=== PATIENT | female | born 1925 | race Caucasian/White ===

== ENCOUNTER → 2016-08-25 | Outpatient (CLI) | payer OTHER ==
[~2016-08-25] MED LIST: ATEN-51 PO
--- NOTE | 2016-08-25 14:30 | RADRPT ---
PROCEDURE: XR left knee. CLINICAL INDICATION: Knee pain TECHNIQUE: The AP weightbearing, PA weightbearing, lateral weight bearing and sunrise views are av ailable for review. COMPARISON: 05/19/2014 FINDINGS: There is moderate to severe osteoarthrosis involving the lateral tibial femoral compartment, moderat e osteoarthrosis involving the medial tibial femoral compartment and mild osteoarthrosis involving t he patellofemoral compartment. This is associated with joint space narrowing, subchondral sclerosis and osteophytosis. There is otherwise normal mineralization, architecture and alignment. No fractures are identified. No osseous lesions are identified. The soft tissues are unremarkable. IMPRESSION: Moderate to severe osteoarthrosis involving the lateral tibial femoral compartment, moderate osteoar throsis involving the medial tibial femoral compartment and mild osteoarthrosis involving the patell ofemoral compartment RPTAT: HGDB .Reggie Rodriguez MD, Date Time Electronically viewed and signed by .Reggie Rodriguez MD, on 08/25/2016 14:30 .B/
--- NOTE | 2016-08-25 14:32 | RADRPT ---
PROCEDURE: XR right knee. CLINICAL INDICATION: Knee pain. TECHNIQUE: The AP weightbearing, lateral weightbearing and sunrise views are available for review. COMPARISON: No comparison available FINDINGS: There is a total knee replacement. There is no evidence of loosening of the prosthesis. There is dif fuse osteopenia No acute fracture or dislocation is seen.No osseous lesions are identified. The sof t tissues are unremarkable . IMPRESSION: Diffuse osteopenia Unremarkable total knee replacement. RPTAT: HGDB .Reggie Rodriguez MD, Date Time Electronically viewed and signed by .Reggie Rodriguez MD, on 08/25/2016 14:32 .B/
== END | disposition home or self-care (01) ==
LOC: HKI 13:27
PROVIDERS: ATTEND Orthopaedic Surgery
DX: Z47.1 Aftercare following joint replacement surgery (principal); M17.12 Unilateral primary osteoarthritis, left knee; M25.562 Pain in left knee; Z96.651 Presence of right artificial knee joint
CPT/HCPCS: 73562; 73564; G0463

== ENCOUNTER → 2016-11-21 | Outpatient (CLI) | payer OTHER ==
--- NOTE | 2016-11-24 15:08 | RADRPT ---
PROCEDURE: Limited x-ray of both lower extremities. 06/21/2014. 1012 hours. CLINICAL INDICATION: Bilateral leg pain. TECHNIQUE: Single frontal view of both lower extremities was obtained from the hips to the calves. COMPARISON: Plain radiographs of the knees from 06/21/2014 FINDINGS: There has been interval placement of a total right knee prosthesis in near anatomic alignment withou t evidence of hardware loosening. There is valgus deformity of the left knee which is not significantly changed. Chondrocalcinosis of the left knee joint is again noted in the medial and lateral compartments. The re are increased degenerative changes of the left knee joint including joint space narrowing and ost eophytes involving primarily the lateral compartment. There is decreased osseous mineralization. IMPRESSION: Interval placement of a total right knee prosthesis in near anatomic alignment without evidence of h ardware loosening. Moderate to severe degenerative changes of the left knee joint which have increased since the prior radiographs from 1014. Decreased osseous mineralization. RPTAT: EE Physician Gisel Date Time Electronically viewed and signed by Larry Carrera Physician on 11/24/2016 15:08 /
== END | disposition home or self-care (01) ==
LOC: HKI 09:31
PROVIDERS: ATTEND Orthopaedic Surgery
DX: Z01.818 Encounter for other preprocedural examination (principal); M17.12 Unilateral primary osteoarthritis, left knee; M25.562 Pain in left knee; Z96.651 Presence of right artificial knee joint
CPT/HCPCS: 77073; G0463

== ENCOUNTER 2016-12-02 07:34 | Inpatient (IN) | payer OTHER ==
[2016-12-01 10:40] VITALS: BMI 36.0
[~2016-12-02] VITALS: Ht 162.6 cm; Wt 96.4 kg
[2016-12-02] VITALS (20 sets, daily range): BP systolic 103–143; BP diastolic 56–78; PULSE 65–92; RESP 12–18; Ht 162.6 cm; Wt 96.4 kg
[~2016-12-02 07:34] MED LIST changes: +EPHEDrine SULFATE 50 MG/5 ML SYG ONE
[2016-12-02] MEDS ORDERED: PREGABALIN 300 MG PO X1 PO ONE (08:00)
[2016-12-02] MEDS ORDERED: TRANEXAMIC ACID in SOD CHLORIDE 0.9% 100 ML ON CALL TO OR IV ONE (08:00)
[2016-12-02] MEDS ORDERED: oxyCODONE (CR) 10 MG TAB [oxyCONTIN] X1 DOSE PO ONE (08:00)
[2016-12-02] MEDS ORDERED: CELECOXIB 400 MG PO X1 DOSE PO ONE (08:00)
[2016-12-02] MEDS ORDERED: PAIN COCKTAIL-CEFUROXIME IRR ONE ×7 (08:00)
[2016-12-02] MEDS ORDERED: CEFAZOLIN 2GM/50 ML (PMX) 50 ML X1 BEFORE INCISION IVPB ONE (08:00)
[2016-12-02] MEDS ORDERED: traMADOL 50 MG TAB X 1 DOSE PO ONE (08:00)
[2016-12-02] MEDS ORDERED: BUPIVACAINE LIPOSOME/PF 266 MG/20 ML VIAL INFIL ONE (08:00)
[2016-12-02] MEDS ORDERED: LACTATED RINGER'S 1,000 ML IV SCH (08:00)
--- NOTE | 2016-12-02 08:21 | CONS ---
DATE OF ADMISSION: 12/02/2016 DATE OF CONSULTATION: PREOPERATIVE INTERNAL MEDICINE CONSULTATION REASON FOR ADMISSION: She is being admitted tomorrow, 12/02/2016, by Dr. Hull for planned left tota l knee replacement. HISTORY OF PRESENT ILLNESS: This is an 89-year-old old female in good health who successfully under went a right total hip replacement in 2013 and who now returns for planned left total knee replaceme . For the details of orthopedic history, please see the full evaluation per Dr. Hull. Medically, she has well controlled hypertension and denies any history of chest pain, shortness of b reath, syncope, presyncope, or any palpitations. She did undergo a normal nuclear medicine SPECT cardiac study in 04/2016 and her most recent echo in 07/2016 showed normal ejection fraction with moderate MR and AI. She is totally asymptomatic from any cardiopulmonary standpoint. No recent fevers, chills or sweats . PAST MEDICAL HISTORY: Please see dictated problem list. ALLERGIES: NONE. HABITS: Tobacco: None. Alcohol: None. MEDICATIONS: 1. Bystolic 2.5 mg daily. 2. Hydrochlorothiazide 12.5 mg daily. 3. Atenolol 25 mg daily. REVIEW OF SYSTEMS: As per HPI. PHYSICAL EXAMINATION: GENERAL: Awake and alert, fit-appearing elderly woman in no acute distress. VITAL SIGNS: Afebrile. Blood pressure is 112/66, heart rate is 66 and regular, respirations are 12 and unlabored. SKIN: No rash. HEAD: Normocephalic, atraumatic. EYES: Pupils are equal, round, reactive. Extraocular movements are full. Sclerae are anicteric. PHARYNX: No lesions. NECK: JVP is not distended. No adenopathy or thyromegaly. Carotids are 2+, no bruits. BACK: No CV/AT. LUNGS: Clear. HEART: S1, S2 with a very soft II/ systolic murmur. ABDOMEN: Soft and nontender. No organomegaly. EXTREMITIES: No cyanosis, clubbing; no edema. LABORATORY DATA: See enclosed. PROBLEM LIST: 1. Degenerative joint disease for planned left total knee replacement. 2. Status post right total knee replacement in 2013. 3. Hypertension, well controlled. 4. Status post normal nuclear medicine cardiac study in 04/2016. 5. 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 6. Snowden cyst on an ultrasound of the left knee dated 11/2016. 7. Status post bladder suspension in 2011. 8. Status post cholecystectomy. RECOMMENDATIONS: The patient is medically cleared for planned surgery. I will be happy to follow h er in the postop period. Dictated By: BRADLEY DUNNE MD, MM/ZURDO Conf#: [id number] DID#: [id number]
[2016-12-02] MEDS ORDERED: NEBI2.5T2 PO (08:22)
[2016-12-02] MEDS ORDERED: HYDR12.58 PO (08:22)
[2016-12-02] MEDS ORDERED: BACITRACIN 50000 UNITS INJ ONE (09:14)
[2016-12-02] MEDS ORDERED: VANCOMYCIN 1 GM INJ ONE (09:15)
[2016-12-02] MEDS ORDERED: POLYMYXIN B 500000 UNIT INJ ONE (09:15)
--- NOTE | 2016-12-02 10:20 | HPN ---
Date/Time of Note Date/Time of Note DATE: 12/02/16 TIME: 10:19 Interval H&P Admission Note Pt. seen H&P reviewed: No system changes No changes from H&P on 11/27/16 by SATURNINO Brandon MD December 02, 2016 10:19
[2016-12-02] MEDS ORDERED: EXPAREL NOTE (BUPIVICAINE LIPOSOMAL) XX SCH (10:30)
[2016-12-02] MEDS ORDERED: DEXAMETHASONE 4 MG/ML 1 ML INJ ONE (10:31)
[2016-12-02] MEDS ORDERED: FENTAnyl 50 MCG/ML VIAL ONE (10:31)
[2016-12-02] MEDS ORDERED: METOCLOPRAMIDE 10 MG INJ ONE (10:31)
[2016-12-02] MEDS ORDERED: HYDROmorphONE 2 MG/ML SYG ONE (11:28)
[2016-12-02] MEDS ORDERED: PROPOFOL 100 ML ONE (11:28)
[2016-12-02] MEDS ORDERED: METOCLOPRAMIDE 10 MG INJ IV PRN (12:00)
[2016-12-02] MEDS ORDERED: ONDANSETRON 4 MG INJ IV PRN ×2 (12:00→14:00)
[2016-12-02] MEDS ORDERED: LABETALOL HCL 20MG INJ IV PRN (12:00)
[2016-12-02] MEDS ORDERED: hydrALAzine 20 MG INJ IV PRN (12:00)
[2016-12-02] MEDS ORDERED: DIPHENHYDRAMINE 50 MG INJ IV PRN (12:00)
[2016-12-02] MEDS ORDERED: MEPERIDINE 25 MG INJ IV PRN (12:00)
[2016-12-02] MEDS ORDERED: HYDROmorphONE (0.2 MG/ML) 10ML SYG IV PRN ×3 (12:00)
[2016-12-02] MEDS: TRANEXAMIC ACID 950 MG in SOD CHLORIDE 0.9% 100 ML IVPB ONE ×3 (12:42)
[2016-12-02] MEDS ORDERED: PROPOFOL 20 ML ONE (13:02)
--- NOTE | 2016-12-02 13:50 | OPR ---
Date/Time of Note Date/Time of Note DATE: 12/02/16 TIME: 13:49 Operative Report Free Text/Dictation Dictation # [id number] Procedure Date: December 02, 2016 Preoperative Diagnosis Left Knee OA Postoperative Diagnosis Same Operation Performed Left TKA Surgeon: SATURNINO SALDANA MD human resource assistant: KEM CHACON PA-C Anesthesia: general Anesthesiologist: IGOR SANCHEZ MD Tourniquet Time: 78 minutes Estimated Blood Loss: 50 - 100 ml's Specimens Bone and soft tissue Tubes/Drains Hemovac x 1 Complications: None Pt Condition Post Procedure: stable Disposition: PACU SATURNINO SALDANA MD December 02, 2016 13:50
[2016-12-02] MEDS ORDERED: ASPIRIN (EC) 325 MG TAB PO ONE (14:00)
[2016-12-02] MEDS ORDERED: NACL 0.9% 3 ML SYG IV SCH (14:00)
[2016-12-02] MEDS ORDERED: DIPHENHYDRAMINE 25 MG CAP PO PRN (14:00)
[2016-12-02] MEDS ORDERED: HYDROmorphONE 1 MG/ML SYG IV PRN (14:00)
[2016-12-02] MEDS ORDERED: NA PHOSPHATE/BIPHOS 133 ML ENEMA PR PRN (14:00)
[2016-12-02] MEDS ORDERED: BISACODYL 10 MG SUPP PR PRN (14:00)
[2016-12-02] MEDS ORDERED: HYDROCODONE/APAP (5/325) TAB PO PRN (14:00)
[2016-12-02 14:17] LABS: HEMATOCRIT 33.3 % (37.0-47.0); HEMOGLOBIN 10.7 g/dl (12.0-16.0)
--- NOTE | 2016-12-02 14:25 | RADRPT ---
PROCEDURE: XR left knee. CLINICAL INDICATION: Knee pain. TECHNIQUE: AP and lateral views are available for review. COMPARISON: No comparison available FINDINGS: There is a postoperative total knee replacement. There is no evidence of loosening of the prosthesis . There is no evidence of hardware failure. The osseous structures are normal in mineralization, arc hitecture and alignment No acute fracture or dislocation is seen.No osseous lesions are identified. There are postoperative soft tissue changes. A drain is in place. Anterior skin sutures are in pl daniel. . IMPRESSION: Unremarkable postoperative total knee replacement. Postoperative soft tissue changes RPTAT: HGDB .Reggie Rodriguez MD, Date Time Electronically viewed and signed by .Reggie Rodriguez MD, on 12/02/2016 14:24 .B/
[2016-12-02] MEDS: CEFAZOLIN 2 GM/50 ML (PMX) 50 ML IVPB SCH ×2 (14:30→22:23)
[2016-12-02 14:53] LABS: CREATININE 0.83 mg/dl (0.44-1.00)
--- NOTE | 2016-12-02 15:08 | OPR ---
DATE OF OPERATION: 12/02/2016 PREOPERATIVE DIAGNOSIS: Left knee osteoarthritis. POSTOPERATIVE DIAGNOSIS: Left knee osteoarthritis. OPERATION PERFORMED: Left total knee arthroplasty. SURGEON: Saturnino Hull MD OFFICE AIDE: MARY Brown COMPONENTS USED: DePuy Attune size 6 narrow femoral component, size 5 tibial baseplate, 7 mm polyet hylene insert, 32 patellar button. ANESTHESIA: Spinal plus general endotracheal intubation, plus femoral nerve catheter. ANESTHESIOLOGIST: Dr. Haynes TOURNIQUET TIME: 78 minutes. ESTIMATED BLOOD LOSS: 50 cc INTRAVENOUS FLUIDS: 2 liters of crystalloid. SPECIMENS: Bone and soft tissue. DRAINS: Hemovac x1. COMPLICATIONS: None. DISPOSITION: The patient tolerated the procedure well and was taken to the recovery room in stable condition. INDICATIONS: The patient is an 89-year-old woman who has had progressive worsening pain in the left knee with radiographic evidence of severe osteoarthritis. She has failed non-surgical means of rachana atment to control her pain, including activity modifications, pain medications, intra-articular inje ctions and ambulatory assist devices. Despite these measures, she has had worsening pain, and I fel t she would benefit from a total knee arthroplasty. The risks, benefits, and alternatives of the procedure were explained in detail to the patient. I e xplained the risks of the surgery to include but not be limited to, bleeding and possible need for b lood transfusion; infection; pain; stiffness; neurovascular injury with possible numbness, weakness, and/or paralysis anywhere from the knee down to the toes; fracture; instability; dislocation; wear and/or loosening of the prosthesis and possible need for future revision; blood clots; pulmonary emb olism; and anesthetic complications such as heart attack, stroke, GI bleed, pneumonia, and/or . Ample time was allowed for the patient to ask questions, all of which were addressed and answered. The patient understood the risks involved and wished to proceed. Informed consent was signed prior to the procedure. PROCEDURE: The patient's left knee was initialed with a marking pen in the preoperative area to jaki ntify the correct operative site. The patient was brought to the operating room and [facility] operating table where a spinal anesthetic was administered. The patien t was then anesthetized and intubated. A Perez catheter was placed. A timeout was performed to con firm that the left leg was the correct operative site. The patient was given 2 g of Ancef within one hour prior to the procedure. A tourniquet was placed on the operative proximal thigh. The operati ve knee and lower extremity were prepped and draped in the usual sterile fashion. The operative low er extremity was elevated and exsanguinated with an Esmarch tourniquet. The proximal thigh tourniqu et was inflated to 300 mmHg. The knee was flexed. A midline incision was made and carried down through the subcutaneous tissue a nd fat with sharp dissection. Limited medial and lateral flaps were raised. A median parapatellar arthrotomy approach was performed. Synovial fluid was normal in color and consistency. The patella was everted and the knee flexed. There were severe tricompartmental osteoarthritic changes noted. A lateral release was performed using the inverted Crucifix technique. The ACL and PCL and remnant s of the menisci were excised. The OrthAlign navigation device was then pinned into place on the di stal femur and set to 0 degrees of varus/valgus and 3 degrees of flexion. The distal cutting block was pinned into place and the oscillating saw was used to make the cut. The tibia was subluxed anteriorly. The tibial OrthAlign navigation device was then pinned into plac e such that the proximal portion of the guide was centered over the junction of the medial and middl e third of the tibial tubercle with the proximal probe placed at the posterior aspect of the ACL tolu tprint. The guide was then set to 0 degrees varus/valgus and 3 degrees of posterior slope. The cut ting block was then pinned into place and the oscillating saw was used to make the cut. The tibia w as sized. The extension gap was checked and accommodated a 7 mm spacer block with the knee in full extension. There was no varus or valgus instability. At this point, the femur was sized with the posterior referencing guide. Two holes were drilled in 3 degrees of external rotation. The two holes were in line with the transepicondylar axis, perpendi cular to [place]'s line, and in line with the tibial cutoff jig brought up with the knee flexed 90 degrees and tensed with 2 lamina spreaders, suggesting the femoral rotation was correct. The four- in-one cutting block was pinned into place. The anterior and posterior cuts and chamfer cuts were m susanne with the oscillating saw. The flexion gap was checked and accommodated the 7 mm spacer block at 90 degrees. There was no varus or valgus instability, suggesting the flexion and extension gaps wer e now equal. The central box was cut out on the femur. The tibia was drilled and punched in proper rotation. Tri al components were placed into position with a trial insert. The patella was cut from 23 mm down to 15 mm and sized. Three holes were drilled and the trial button placed in position. With all the t rials now in place, the knee was taken through range of motion and came to full extension as evidenc ed by the fact that with the foot on my abdomen and axial loading, there was no tendency for the kne e to flex. The knee was able to be flexed to 125 degrees with good patellar tracking with no latera l tilt or subluxation. At this point, I was satisfied with the overall range of motion, stability, and patellar tracking. The trials were removed. The real components were opened. Two bags of cement were mixed, one with and one without premixed antibiotic. The knee was irrigated with antibiotic saline and sucked dry. Once the cement was in a doughy stage, the real components were cemented into place. The knee was held in full extension, and the patellar component was held with a patellar clamp. All excess cemen t was removed with curettes. As the cement was hardening, the synovial/capsular layer was infiltrat ed with a mixture of 150 mg of 0.5% Bupivacaine, 8 mg of Duramorph, 300 mcg of epinephrine, 30 mg of Toradol, 100 mcg of clonidine, 750 mg of cefuroxime and 86 mL of normal saline. followed by an inj ection of 266 mg of liposomal Bupivacaine. A Hemovac drain was placed in the deep portion of the wound and brought out the anterolateral thigh. Once the cement was completely hardened, the trial liner was removed, and the real insert was open ed. The tourniquet was let down, and there was good hemostasis. The knee was then irrigated with a mixture of betadine/saline and then antibiotic saline with pulsatile lavage. The real insert was i mpacted into the tibia and reduced onto to the femur. The arthrotomy was closed with a few interrupted #1 Ethibond in a [id number]-bh-blsow fashion, and then closed in a watertight fashion with a running #2 Stratafix suture. Knee flexion was checked against gravity and came to 125 degrees. The subcutaneous layer was irrigated and closed with 2-0 Stratafi x, and then 3-0 Vicryl and then steven on the skin. The wound was covered with an occlusive dressi ng, and secured with cast padding and a bias dressing. The drain was secured with 3-0 nylon. The sponge and needle counts were correct at the end of the case. The patient was then awakened, ex tubated, and taken to the recovery room in stable condition. Dictated By: SAUTRNINO ALVARES/ZURDO Conf#: [id number] DID#: [id number]
--- NOTE | 2016-12-02 15:24 | CONS ---
DATE OF ADMISSION: 12/02/2016 DATE OF CONSULTATION: 12/02/2016 TYPE OF CONSULTATION: Postoperative Medical Thank you very much, Dr. Saldana, for allowing me to evaluate the above patient who just underwent le ft total knee replacement. HISTORICAL EVENTS: As you well know, this patient has had increasing pain involving her left knee a nd elected to proceed with surgery today. In recovery, postoperatively she is comfortable without s hortness of breath, cough, wheezing, chest or abdominal pain. MEDICATIONS PRIOR TO ADMISSION: Include: 1. Bystolic 2.5 per day. 2. Hydrochlorothiazide 12.5 per day. PAST MEDICAL HISTORY: 1. Cholecystectomy. 2. History of benign breast cyst removal 30 years ago. 3. Bladder suspension. 4. Right total knee replacement. 5. Normal nuclear treadmill 04/2016 with echocardiography in 07/2015 revealed moderate MR and AI. 6. On 11/25/2016, she had a Snowden's cyst involving the left lower extremity without evidence of de ep vein thrombosis. 7. She admits undergoing nuclear stress study in 07/2015 that revealed no ischemia. PHYSICAL EXAMINATION: GENERAL: Comfortable appearing female in no acute distress. VITAL SIGNS: Blood pressure 122/80, pulse 70, respirations are 20, she was afebrile. EYES: Extraocular muscles were full. NOSE, MOUTH, AND THROAT: Normal. NECK: Supple. There was no jugular venous distention, thyroid enlargement or adenopathy. LUNGS: Clear. HEART: Rhythm regular. ABDOMEN: Nontender. Liver and spleen were not palpable. No masses or tenderness were noted. EXTREMITIES: No edema, no calf tenderness. NEUROLOGIC: No lateralizing motor weakness. IMPRESSION: 1. Stable postoperative left knee replacement. 2. History of hypertension, to continue Bystolic but will hold hydrochlorothiazide given extracellu lar fluid losses. 3. We will follow her daily for signs and symptoms of thromboembolic disease despite appropriate de ep venous thrombosis prophylaxis. Dictated By: DYLAN HIGGINS/NTS Conf#: [id number] DID#: [id number] CC: SATURNINO SALDANA MD;*EndCC*
--- NOTE | 2016-12-02 16:55 | PN ---
Date/Time of Note Date/Time of Note DATE: 12/02/16 TIME: 16:53 Assessment/Plan Lines/Catheters IV Catheter Type (from Nrsg): Peripheral IV Plummer in Place (from Nrsg): Yes Assessment/Plan Assessment/Plan Stable in PACU, s/p left TKA -continue ancef until drain removed -pain meds as needed ASA/SCDs for DVT prophylaxis -OOB with PT -check AM labs -monitor drain -d/c plummer in AM XR of the left knee shows good alignment with no evidence of fracture or dislocation Subjective 24 Hr Interval Summary Stable in PACU. Moving all extremities. Denies any pain. Exam/Review of Systems Vital Signs Vitals Vital Signs Date Time Temp Pulse Resp B/P Pulse Ox O2 Delivery O2 Flow Rate FiO2 12/02/16 15:38 78 14 111/66 95 Nasal Cannula 2.0 12/02/16 14:38 97.9 Exam Free Text/Dictation Hemovac: minimal Dressing dry Incision clean, dry, and intact without redness or drainage Thigh soft 12/05 Quadriceps, Tibialis Anterior, EHL, Gastroc, Soleus, Peroneals Normal sensation Palpable DT/PT, CR <2 sec No distal edema Results Result Diagram: 12/02/16 1405 12/02/16 1405 KEM CHACON PA-C December 02, 2016 16:55
[2016-12-02] MEDS ORDERED: TRANEXAMIC ACID 960 MG in SOD CHLORIDE 0.9% 100 ML IVPB ONE ×2 (17:00→20:00)
--- NOTE | 2016-12-02 17:06 | RADRPT ---
PROCEDURE: Intraoperative imaging of the left knee with fluoroscopy. CLINICAL INDICATION: Left knee pain. Intraoperative. TECHNIQUE: 2 images of the left knee were obtained in the operating room with an image intensifier . No radiologist was in attendance. 0.3 minutes of fluoroscopy time was used. COMPARISON: 11/21/2016. FINDINGS: Images demonstrate components of a left knee total arthroplasty. IMPRESSION: 1. Intraoperative imaging of the left knee. RPTAT: QQ .Frantz Pete MD, MD Date Time Electronically viewed and signed by .Frantz Pete MD, on 12/02/2016 17:05 .R/
[2016-12-02] MEDS: PANTOPRAZOLE (EC) 40 MG TAB PO SCH (17:19)
[2016-12-02] MEDS: traMADol 50 MG TAB PO SCH (17:19)
[2016-12-02] MEDS: ACETAMINOPHEN 1000MG/100ML IV 100 ML IVPB SCH (17:20)
[2016-12-02] MEDS ORDERED: CEFAZOLIN 2 GM/50 ML (PMX) 50 ML IVPB SCH (20:00)
[2016-12-02] MEDS: DOCUSATE SODIUM 100 MG CAP PO SCH (22:23)
[2016-12-02] MEDS: LACTATED RINGER'S 1,000 ML IV SCH (22:23)
[2016-12-02] MEDS: PREGABALIN 50 MG CAP PO SCH (22:23)
[2016-12-03] MEDS: ACETAMINOPHEN 1000MG/100ML IV 100 ML IVPB SCH ×3 (00:16→13:16)
[2016-12-03] MEDS: traMADol 50 MG TAB PO SCH ×4 (00:16→17:52)
[2016-12-03 00:17] VITALS: BP 122/64; PULSE 66; RESP 18
[2016-12-03 05:28] LABS: HEMATOCRIT 34.9 % (37.0-47.0); HEMOGLOBIN 10.7 g/dl (12.0-16.0)
[2016-12-03 05:32] LABS: MAGNESIUM 1.8 mg/dl (1.7-2.5)
[2016-12-03] MEDS: LACTATED RINGER'S 1,000 ML IV SCH ×4 (05:32→22:40)
[2016-12-03] MEDS: PANTOPRAZOLE (EC) 40 MG TAB PO SCH ×2 (05:33→17:52)
[2016-12-03 05:35] LABS: CREATININE 0.83 mg/dl (0.44-1.00); POTASSIUM 4.9 mmol/L (3.5-5.1)
[2016-12-03] MEDS: CEFAZOLIN 2 GM/50 ML (PMX) 50 ML IVPB SCH (06:01)
[2016-12-03 08:02] VITALS: BP 122/58; RESP 20
--- NOTE | 2016-12-03 08:12 | PDOCDIS ---
Discharge Instructions DIAGNOSIS Discharge Diagnosis: s/p left TKA CONDITION Patient Condition: Good HOME CARE INSTRUCTIONS: Diet Instructions: Regular ACTIVITY: Activity Restrictions: Slowly Increase Activity Rest between Activity Avoid heavy lifting Do not operate Machinery Do not operate Power Tool Avoid Heavy Housework Keep Limb Elevated FOLLOW UP/APPOINTMENTS Appointments follow up in the office on 12/12/16 OTHER ORDERS: Other Orders: S/P TKA Physical Therapy: Three times per week at home x 2 weeks Daily in Rehab/SNF WB STATUS: WBAT 1. Strengthening exercises for both upper and un-operated lower extremities. 2. Gait training with front wheeled walker 3. Active range of motion exercises to operative knee. 4. When not working on knee range of motion exercises, distal towel roll under operative ankle/distal calf to promote full extension. 5. DO NOT PUT ANYTHING BEHIND OPERATIVE KNEE!!! 6. Quadriceps and hamstring strengthening. 7. May switch to cane in contra lateral hand 6 weeks after surgery. 8. Physical Therapy can open case if nursing is not available. 9. Use Ice Machine as instructed from date of surgery while at rest 3X/day. 10. Patient requires mobile SCDs to reduce risk of developing DVT following TKA. Patient will use the mobile SCDs for 30 days postoperatively. Bathing assistance by home health aide twice weekly if Medicare patient. Occupational Therapy: Evaluation for assistive devices and ADL training. Wound Care: Keep incision dry & covered with Tegaderm until first visit with Dr. Hull Anticoagulation Orders: Enteric Coated Aspirin 325 mg po bid x 6 weeks from date of surgery Follow-up:Call for an appointment with Dr. Hull in 1 week after discharged from hospital at DME Orders: JADIEL, 3-in-1 Commode, Polar ice machine, Mobile SCDs KEM CHACON PA-C December 03, 2016 08:12
[2016-12-03] MEDS ORDERED: TRAM50TA2 PO (08:14)
[2016-12-03] MEDS ORDERED: ASPI325T32 PO (08:14)
[2016-12-03] MEDS ORDERED: PANT40TA4 PO (08:14)
[2016-12-03] MEDS ORDERED: HYDR-905 PO (08:14)
[2016-12-03] MEDS ORDERED: PREG50CA PO (08:15)
--- NOTE | 2016-12-03 08:45 | PN ---
Date/Time of Note Date/Time of Note DATE: 12/03/16 TIME: 08:44 Assessment/Plan Lines/Catheters IV Catheter Type (from Nrsg): Peripheral IV Perez in Place (from Nrsg): Yes Assessment/Plan Assessment/Plan Stable POD #1, s/p left TKA -d/c abx -pain meds as needed -ASA/SCDs -drain removed -OOB with PT -check AM labs -d/c planning. Will plan to go to [facility] upon discharge Subjective 24 Hr Interval Summary No acute overnight events. Denies pain. Complaining of mild sore throat from ET tube. Did not start PT yesterday. VSS, afebrile. Will likely go to SNF upon discharge. Exam/Review of Systems Vital Signs Vitals Vital Signs Date Time Temp Pulse Resp B/P Pulse Ox O2 Delivery O2 Flow Rate FiO2 12/03/16 08:02 98.3 80 20 122/58 98 12/03/16 00:17 Nasal Cannula 2.0 Intake and Output 12/02/16 12/02/16 12/03/16 15:00 23:00 07:00 Intake Total 2109.5 ml 240 ml 1800 ml Output Total 300 ml 930 ml Balance 1809.5 ml 240 ml 870 ml Exam Free Text/Dictation Hemovac: 30cc Dressing dry Incision clean, dry, and intact without redness or drainage Thigh soft /5 Quadriceps, Tibialis Anterior, EHL, Gastroc, Soleus, Peroneals Normal sensation Palpable DT/PT, CR <2 sec No distal edema Results Result Diagram: 12/03/16 0433 12/03/16 0433 KEM CHACON PA-C December 03, 2016 08:45
--- NOTE | 2016-12-03 08:51 | CONS ---
Date/Time of Note Date/Time of Note DATE: 12/03/16 TIME: 08:49 Assessment/Plan Assessment/Plan Additional Assessment/Plan 1. Left knee replacement, stabe 2. HBP, controlled 3. Labs rev Consultation Date/Type/Reason Admit Date/Time December 02, 2016 at 07:34 Initial Consult Date Detailed Summary Respiratory: No cough, No shortness of breath Cardiovascular: No chest pain Gastrointestinal: no complaints Genitourinary: other (plummer in place) Musculoskeletal: bone/joint pain (mild left knee pain) Exam/Review of Systems Vital Signs Vitals Vital Signs Date Time Temp Pulse Resp B/P Pulse Ox O2 Delivery O2 Flow Rate FiO2 12/03/16 08:02 98.3 80 20 122/58 98 12/03/16 00:17 Nasal Cannula 2.0 Intake and Output 12/02/16 12/02/16 12/03/16 15:00 23:00 07:00 Intake Total 2109.5 ml 240 ml 1800 ml Output Total 300 ml 930 ml Balance 1809.5 ml 240 ml 870 ml Exam Neck: No jvd Respiratory: clear to auscultation Cardiovascular: regular rate and rhythm Gastrointestinal: soft Extremities: No edema (bilat) Results Result Diagram: 12/03/16 0433 12/03/16 0433 Results 24 hrs Laboratory Tests Test 12/02/16 14:05 12/03/16 04:33 Hemoglobin 10.7 L 10.7 L Hematocrit 33.3 L 34.9 L Sodium Level 139 135 Potassium Level 4.0 4.9 Chloride Level 103 103 Carbon Dioxide Level 26 24 Anion Gap 14 13 Blood Urea Nitrogen 31 H 31 H Creatinine 0.83 0.83 Glucose Level 157 143 Calcium Level 9.0 9.0 Phosphorus Level 5.0 H Magnesium Level 1.8 Medications Medications Current Medications Miscellaneous Medication 2.5 mg 2.5 mg DAILY PO ; Start 12/03/16 at 09:00 Lactated Ringer's (Lr) 1,000 ml @ 125 mls/hr Q8H IV Last administered on t 05:32; Admin Dose 125 MLS/HR; Start 12/02/16 at 13:33 Celecoxib 200 mg 200 mg DAILY PO ; Start 12/03/16 at 09:00 Acetaminophen (Ofirmev 1000mg/ 100ml Iv) 100 ml @ 400 mls/hr Q6 IVPB Last administered on 12/03/16 05:32; Admin Dose 400 MLS/HR; Start 12/02/16 at 18:00; Stop 12/03/16 at 17:59 Tramadol HCl (Ultram) 50 mg Q6 PO Last administered on 12/03/16 05:33; Admin Dose 50 MG; Start 12/02/16 at 18:00; Stop 12/05/16 at 17:59 Acetaminophen/ Hydrocodone Bitart ([place] (5/325)) 1 tab Q4H PRN PO PAIN LEVEL 1 -3; Start 12/02/16 at 14:00 Acetaminophen/ Hydrocodone Bitart ([place] (5/325)) 2 tab Q4H PRN PO PAIN LEVEL 4 -7; Start 12/02/16 at 14:00 Hydromorphone HCl (Dilaudid) 1 mg Q3H PRN IV PAIN LEVEL 8-10; Start 12/02/16 at 14:00 Ondansetron HCl (Zofran Inj) 4 mg Q6H PRN IV NAUSEA AND/OR VOMITING; Start 12/02 at 14:00 Bisacodyl (Dulcolax Supp) 10 mg Q12H PRN [place] CONSTIPATION; Start 12/02/16 at 14: 00 Magnesium Hydroxide (Milk Of Mag) 30 ml BID PRN PO CONSTIPATION; Start 12/02/16 at 14:00 Sodium Biphosphate/ Sodium Phosphate (Fleet Enema) 133 ml DAILY PRN [place] CONSTIPATION; Start 12/02/16 at 14:00 Docusate Sodium (Colace) 100 mg BID PO Last administered on 12/02/16 22:23; Admin Dose 100 MG; Start 12/02/16 at 21:00 Diphenhydramine HCl (Benadryl) 25 mg Q6H PRN PO PRURITUS; Start 12/02/16 at 14: 00 Aspirin (Ecotrin) 325 mg BID PO ; Start 12/03/16 at 09:00 Pantoprazole (Protonix Tab) 40 mg BID@06,18 PO Last administered on 12/03/16 05 :33; Admin Dose 40 MG; Start 12/02/16 at 18:00 Pregabalin (Lyrica) 50 mg BID PO Last administered on 12/02/16 22:23; Admin Dose 50 MG; Start 12/02/16 at 21:00 DYLAN OLIVAREZ MD December 03, 2016 08:51
[2016-12-03] MEDS ORDERED: HYDROCHLOROTHIAZIDE 12.5 MG CAP PO SCH (09:00)
--- NOTE | 2016-12-03 09:24 | PN ---
Date/Time of Note Date/Time of Note DATE: 12/03/16 TIME: 09:19 Assessment/Plan VTE Prophylaxis VTE Prophylaxis Intervention: ambulation Lines/Catheters IV Catheter Type (from Nrsg): Peripheral IV Urinary Cath still in place: Yes Subjective 24 Hr Interval Summary Free Text/Dictation Anesthesia NOte: A 89 year olfd female s/p knee replacement undet GA and spinal is dong well. pain is controlled, no N/V, headache, itching. back is clean. Exam/Review of Systems Vital Signs Vitals Vital Signs Date Time Temp Pulse Resp B/P Pulse Ox O2 Delivery O2 Flow Rate FiO2 12/03/16 08:02 98.3 80 20 122/58 98 12/03/16 00:17 Nasal Cannula 2.0 Intake and Output 12/02/16 12/02/16 12/03/16 14:59 22:59 06:59 Intake Total 2109.5 ml 240 ml 1800 ml Output Total 300 ml 930 ml Balance 1809.5 ml 240 ml 870 ml Results Result Diagram: 12/03/16 0433 12/03/16 0433 Results 24 hrs Laboratory Tests Test 12/02/16 14:05 12/03/16 04:33 Hemoglobin 10.7 L 10.7 L Hematocrit 33.3 L 34.9 L Sodium Level 139 135 Potassium Level 4.0 4.9 Chloride Level 103 103 Carbon Dioxide Level 26 24 Anion Gap 14 13 Blood Urea Nitrogen 31 H 31 H Creatinine 0.83 0.83 Glucose Level 157 143 Calcium Level 9.0 9.0 Phosphorus Level 5.0 H Magnesium Level 1.8 Medications Medications Current Medications Miscellaneous Medication 2.5 mg 2.5 mg DAILY PO ; Start 12/03/16 at 09:00 Lactated Ringer's (Lr) 1,000 ml @ 125 mls/hr Q8H IV Last administered on 05:32; Admin Dose 125 MLS/HR; Start 12/02/16 at 13:33 Celecoxib 200 mg 200 mg DAILY PO ; Start 12/03/16 at 09:00 Acetaminophen (Ofirmev 1000mg/ 100ml Iv) 100 ml @ 400 mls/hr Q6 IVPB Last administered on 12/03/16 05:32; Admin Dose 400 MLS/HR; Start 12/02/16 at 18:00; Stop 12/03/16 at 17:59 Tramadol HCl (Ultram) 50 mg Q6 PO Last administered on 12/03/16 05:33; Admin Dose 50 MG; Start 12/02/16 at 18:00; Stop 12/05/16 at 17:59 Acetaminophen/ Hydrocodone Bitart ([place] (5/325)) 1 tab Q4H PRN PO PAIN LEVEL 1 -3; Start 12/02/16 at 14:00 Acetaminophen/ Hydrocodone Bitart ([place] (5/325)) 2 tab Q4H PRN PO PAIN LEVEL 4 -7; Start 12/02/16 at 14:00 Hydromorphone HCl (Dilaudid) 1 mg Q3H PRN IV PAIN LEVEL 8-10; Start 12/02/16 at 14:00 Ondansetron HCl (Zofran Inj) 4 mg Q6H PRN IV NAUSEA AND/OR VOMITING; Start 12/02 at 14:00 Bisacodyl (Dulcolax Supp) 10 mg Q12H PRN [place] CONSTIPATION; Start 12/02/16 at 14: 00 Magnesium Hydroxide (Milk Of Mag) 30 ml BID PRN PO CONSTIPATION; Start 12/02/16 at 14:00 Sodium Biphosphate/ Sodium Phosphate (Fleet Enema) 133 ml DAILY PRN [place] CONSTIPATION; Start 12/02/16 at 14:00 Docusate Sodium (Colace) 100 mg BID PO Last administered on 12/02/16 22:23; Admin Dose 100 MG; Start 12/02/16 at 21:00 Diphenhydramine HCl (Benadryl) 25 mg Q6H PRN PO PRURITUS; Start 12/02/16 at 14: 00 Aspirin (Ecotrin) 325 mg BID PO ; Start 12/03/16 at 09:00 Pantoprazole (Protonix Tab) 40 mg BID@06,18 PO Last administered on 12/03/16 05 :33; Admin Dose 40 MG; Start 12/02/16 at 18:00 Pregabalin (Lyrica) 50 mg BID PO Last administered on 12/02/16 22:23; Admin Dose 50 MG; Start 12/02/16 at 21:00 IGOR SANCHEZ MD December 03, 2016 09:24
[2016-12-03] MEDS: DOCUSATE SODIUM 100 MG CAP PO SCH ×2 (09:50→20:15)
[2016-12-03] MEDS: PREGABALIN 50 MG CAP PO SCH ×2 (09:50→20:15)
[2016-12-03] MEDS: CELECOXIB 200 MG CAP PO SCH (09:51)
[2016-12-03] MEDS: ASPIRIN (EC) 325 MG TAB PO SCH ×2 (09:51→20:15)
[2016-12-03] MEDS: NEBIVOLOL 5 MG TAB PO SCH (10:18)
[2016-12-03 16:47] LABS: ADD UMIC YES; URINE BILIRUBIN (Dip) NEGATIVE (NEGATIVE); URINE BLOOD (Dip) TRACE (NEGATIVE); URINE COLOR LT. YELLOW (YELLOW); URINE GLUCOSE (Dip) NEGATIVE (NEGATIVE); URINE KETONES (Dip) NEGATIVE (NEGATIVE); URINE LEUKOCYTE ESTERASE (Dip) NEGATIVE (NEGATIVE); URINE NITRITE (Dip) NEGATIVE (NEGATIVE); URINE TOTAL PROTEIN (Dip) TRACE (NEGATIVE); URINE UROBILINOGEN (Dip) 0.2 E.U./dL (0.1-1.0)
[2016-12-03 17:15] LABS: SQUAMOUS EPITHELIAL CELL,UR RARE
[2016-12-03 20:03] VITALS: BP 134/64; RESP 18
[2016-12-04 05:01] LABS: HEMATOCRIT 30.7 % (37.0-47.0); HEMOGLOBIN 9.8 g/dl (12.0-16.0)
[2016-12-04] MEDS: traMADol 50 MG TAB PO SCH ×4 (05:21→17:44)
[2016-12-04] MEDS: PANTOPRAZOLE (EC) 40 MG TAB PO SCH ×2 (05:21→17:44)
[2016-12-04 05:29] LABS: POTASSIUM 4.5 mmol/L (3.5-5.1)
[2016-12-04 05:31] LABS: CREATININE 0.89 mg/dl (0.44-1.00)
[2016-12-04 05:48] VITALS: BP 162/66; PULSE 55; RESP 18
[2016-12-04 05:52] LABS: CALCIUM 8.9 mg/dl (8.4-10.2)
[2016-12-04 07:30] VITALS: BP 117/58; RESP 16
--- NOTE | 2016-12-04 08:08 | CONS ---
Date/Time of Note Date/Time of Note DATE: 12/04/16 TIME: 08:05 Assessment/Plan Assessment/Plan Problems: (1) Total knee replacement status Comment: now POD #2... doing well... cont PT and ASA (2) HTN (hypertension) Comment: controlled... asx Consultation Date/Type/Reason Admit Date/Time December 02, 2016 at 07:34 Initial Consult Date Type of Consultation: im 24 HR Interval Summary Free Text/Dictation doing well.. min pain.. no fever, cp or sob Exam/Review of Systems Vital Signs Vitals Vital Signs Date Time Temp Pulse Resp B/P Pulse Ox O2 Delivery O2 Flow Rate FiO2 12/04/16 05:48 97.4 55 18 162/66 98 Nasal Cannula 2.0 Intake and Output 12/03/16 12/03/16 12/04/16 15:00 23:00 07:00 Intake Total 900 ml 1400 ml 1300 ml Output Total 1000 ml Balance 900 ml 1400 ml 300 ml Exam Constitutional: alert, oriented Psych: no complaints Neck: supple Respiratory: clear to auscultation Cardiovascular: regular rate and rhythm Gastrointestinal: nl liver, spleen, soft Extremities: normal pulses Results Result Diagram: 12/04/16 0430 12/04/16 0430 Results 24 hrs Laboratory Tests Test 12/04/16 04:30 Hemoglobin 9.8 L Hematocrit 30.7 L Sodium Level 137 Potassium Level 4.5 Chloride Level 101 Carbon Dioxide Level 28 Anion Gap 13 Blood Urea Nitrogen 33 H Creatinine 0.89 Glucose Level 107 Calcium Level 8.9 Medications Medications Current Medications Miscellaneous Medication 2.5 mg 2.5 mg DAILY PO Last administered on 12/03/16 10:18; Admin Dose 2.5 MG; Start 12/03/16 at 09:00 Lactated Ringer's (Lr) 1,000 ml @ 125 mls/hr Q8H IV Last administered on 22:40; Admin Dose 125 MLS/HR; Start 12/02/16 at 13:33 Celecoxib (Celebrex) 200 mg DAILY PO Last administered on 12/03/16 09:51; Admin Dose 200 MG; Start 12/03/16 at 09:00 Tramadol HCl (Ultram) 50 mg Q6 PO Last administered on 12/04/16 05:21; Admin Dose 50 MG; Start 12/02/16 at 18:00; Stop 12/05/16 at 17:59 Acetaminophen/ Hydrocodone Bitart ([place] (5/325)) 1 tab Q4H PRN PO PAIN LEVEL 1 -3; Start 12/02/16 at 14:00 Acetaminophen/ Hydrocodone Bitart ([place] (5/325)) 2 tab Q4H PRN PO PAIN LEVEL 4 -7; Start 12/02/16 at 14:00 Hydromorphone HCl (Dilaudid) 1 mg Q3H PRN IV PAIN LEVEL 8-10; Start 12/02/16 at 14:00 Ondansetron HCl (Zofran Inj) 4 mg Q6H PRN IV NAUSEA AND/OR VOMITING; Start 12/02 at 14:00 Bisacodyl (Dulcolax Supp) 10 mg Q12H PRN [place] CONSTIPATION; Start 12/02/16 at 14: 00 Magnesium Hydroxide (Milk Of Mag) 30 ml BID PRN PO CONSTIPATION; Start 12/02/16 at 14:00 Sodium Biphosphate/ Sodium Phosphate (Fleet Enema) 133 ml DAILY PRN [place] CONSTIPATION; Start 12/02/16 at 14:00 Docusate Sodium (Colace) 100 mg BID PO Last administered on 12/03/16 20:15; Admin Dose 100 MG; Start 12/02/16 at 21:00 Diphenhydramine HCl (Benadryl) 25 mg Q6H PRN PO PRURITUS; Start 12/02/16 at 14: 00 Aspirin (Ecotrin) 325 mg BID PO Last administered on 12/03/16 20:15; Admin Dose 325 MG; Start 12/03/16 at 09:00 Pantoprazole (Protonix Tab) 40 mg BID@06,18 PO Last administered on 12/04/16 05 :21; Admin Dose 40 MG; Start 12/02/16 at 18:00 Pregabalin (Lyrica) 50 mg BID PO Last administered on 12/03/16 20:15; Admin Dose 50 MG; Start 12/02/16 at 21:00 BRADLEY DUNNE MD December 04, 2016 08:08
--- NOTE | 2016-12-04 08:59 | PN ---
Date/Time of Note Date/Time of Note DATE: 12/04/16 TIME: 08:57 Assessment/Plan Lines/Catheters IV Catheter Type (from Nrsg): Peripheral IV Perez in Place (from Nrsg): No Assessment/Plan Assessment/Plan POD #2, s/p left TKA -pain meds as needed -ASA/SCDs for DVT prophylaxis -OOB with PT -dressing changed -check AM labs -likely will transfer to SNF tomorrow Subjective 24 Hr Interval Summary No acute overnight events. Complaining of mild pain to her knee. Denies f/c. Progressing with PT. VSS, afebrile. Will plan to transfer to SNF tomorrow. Exam/Review of Systems Vital Signs Vitals Vital Signs Date Time Temp Pulse Resp B/P Pulse Ox O2 Delivery O2 Flow Rate FiO2 12/04/16 05:48 97.4 55 18 162/66 98 Nasal Cannula 2.0 Intake and Output 12/03/16 12/03/16 12/04/16 15:00 23:00 07:00 Intake Total 900 ml 1400 ml 1300 ml Output Total 1000 ml Balance 900 ml 1400 ml 300 ml Exam Free Text/Dictation Dressing dry Incision clean, dry, and intact without redness or drainage Thigh soft 12/05 Quadriceps, Tibialis Anterior, EHL, Gastroc, Soleus, Peroneals Normal sensation Palpable DT/PT, CR <2 sec No distal edema Results Result Diagram: 12/04/16 0430 12/04/16 043 KEM CHACON PA-C December 04, 2016 08:58
[2016-12-04] MEDS: PREGABALIN 50 MG CAP PO SCH ×2 (09:46→20:30)
[2016-12-04] MEDS: ASPIRIN (EC) 325 MG TAB PO SCH ×2 (09:46→20:30)
[2016-12-04] MEDS: NEBIVOLOL 5 MG TAB PO SCH (09:46)
[2016-12-04] MEDS: DOCUSATE SODIUM 100 MG CAP PO SCH ×2 (09:46→20:30)
[2016-12-04] MEDS: CELECOXIB 200 MG CAP PO SCH (09:46)
[2016-12-04] MEDS: LACTATED RINGER'S 1,000 ML IV SCH (13:33)
[2016-12-04] MEDS: HYDROCODONE/APAP (5/325) TAB PO PRN ×2 (16:04→22:51)
[2016-12-04 19:49] VITALS: BP 97/54; RESP 16
[2016-12-04] MEDS: MAGNESIUM HYDROXIDE 30ML CUP PO PRN (20:36)
[2016-12-05] MEDS: HYDROCODONE/APAP (5/325) TAB PO PRN ×2 (04:45→19:02)
[2016-12-05 05:18] LABS: HEMATOCRIT 29.7 % (37.0-47.0); HEMOGLOBIN 9.4 g/dl (12.0-16.0)
[2016-12-05 05:52] LABS: CALCIUM 8.7 mg/dl (8.4-10.2); CREATININE 0.91 mg/dl (0.44-1.00); POTASSIUM 4.8 mmol/L (3.5-5.1)
[2016-12-05] MEDS: PANTOPRAZOLE (EC) 40 MG TAB PO SCH ×2 (06:00→18:16)
[2016-12-05] MEDS: traMADol 50 MG TAB PO SCH ×3 (06:02→13:00)
[2016-12-05 07:58] VITALS: BP 109/52; PULSE 77; RESP 18
[2016-12-05] MEDS ORDERED: VANCOMYCIN IV PER PHARMACY XX SCH (08:00)
--- NOTE | 2016-12-05 08:19 | PN ---
Date/Time of Note Date/Time of Note DATE: 12/05/16 TIME: 08:17 Assessment/Plan Lines/Catheters IV Catheter Type (from Nrsg): Peripheral IV Perez in Place (from Nrsg): No Assessment/Plan Assessment/Plan POD #3, s/p left TKA -pain meds as needed -ASA/SCDs for DVT prophylaxis -OOB with PT -start Vancomycin due to mild LLE erythema -dressing changed -check AM labs -will hold discharge until the weekend due to redness, but will plan to go to SNF when stable Subjective 24 Hr Interval Summary No acute overnight events. Only complaining of mild pain. Progressing with PT. VSS, afebrile. Will plan to go to SNF upon discharge. Exam/Review of Systems Vital Signs Vitals Vital Signs Date Time Temp Pulse Resp B/P Pulse Ox O2 Delivery O2 Flow Rate FiO2 12/05/16 07:58 97.8 77 18 109/52 94 Room Air 12/04/16 05:48 2.0 Intake and Output 12/04/16 12/04/16 12/05/16 15:00 23:00 07:00 Intake Total 600 ml 500 ml 600 ml Output Total 1000 ml Balance 600 ml -500 ml 600 ml Exam Free Text/Dictation Dressing dry Incision clean, dry, and intact without redness or drainage Thigh soft, mild erythema along distal aspect of LLE. No warmth to touch 5/5 Quadriceps, Tibialis Anterior, EHL, Gastroc, Soleus, Peroneals Normal sensation Palpable DT/PT, CR <2 sec No distal edema Results Result Diagram: 12/05/16 0435 12/05/16 0435 KEM CHACON PA-C December 05, 2016 08:19
--- NOTE | 2016-12-05 08:30 | CONS ---
Date/Time of Note Date/Time of Note DATE: 12/05/16 TIME: 08:28 Assessment/Plan Assessment/Plan Additional Assessment/Plan 1. Doing well post op left knee replacement. 2. ? pain left foot, tibia>will get nivvs and observe. Consultation Date/Type/Reason Admit Date/Time December 02, 2016 at 07:34 Type of Consultation: im Detailed Summary Respiratory: No cough, No shortness of breath Cardiovascular: no complaints Gastrointestinal: no complaints Musculoskeletal: bone/joint pain (leftknee pain and ? tibial and foot pain) Exam/Review of Systems Vital Signs Vitals Vital Signs Date Time Temp Pulse Resp B/P Pulse Ox O2 Delivery O2 Flow Rate FiO2 12/05/16 07:58 97.8 77 18 109/52 94 Room Air 12/04/16 05:48 2.0 Intake and Output 12/04/16 12/04/16 12/05/16 15:00 23:00 07:00 Intake Total 600 ml 500 ml 600 ml Output Total 1000 ml Balance 600 ml -500 ml 600 ml Exam Neck: No jvd Respiratory: clear to auscultation Cardiovascular: regular rate and rhythm Gastrointestinal: soft, No tender Extremities: other (sl swelling left lower extrem, left foot is not warm and no swelling, homans is neg) Results Result Diagram: 12/05/16 0435 12/05/16 0435 Results 24 hrs Laboratory Tests Test 12/05/16 04:35 Hemoglobin 9.4 L Hematocrit 29.7 L Sodium Level 133 L Potassium Level 4.8 Chloride Level 101 Carbon Dioxide Level 31 Anion Gap 6 L Blood Urea Nitrogen 33 H Creatinine 0.91 Glucose Level 108 Calcium Level 8.7 Medications Medications Current Medications Miscellaneous Medication (Bystolic) 2.5 mg DAILY PO Last administered on 09:46; Admin Dose 2.5 MG; Start 12/03/16 at 09:00 Celecoxib (Celebrex) 200 mg DAILY PO Last administered on 12/04/16 09:46; Admin Dose 200 MG; Start 12/03/16 at 09:00 Tramadol HCl (Ultram) 50 mg Q6 PO Last administered on 12/05/16 06:02; Admin Dose 50 MG; Start 12/02/16 at 18:00; Stop 12/05/16 at 17:59 Acetaminophen/ Hydrocodone Bitart ([place] (5/325)) 1 tab Q4H PRN PO PAIN LEVEL 1 -3 Last administered on 12/05/16 04:45; Admin Dose 1 TAB; Start 12/02/16 at 14:00 Acetaminophen/ Hydrocodone Bitart ([place] (5/325)) 2 tab Q4H PRN PO PAIN LEVEL 4 -7; Start 12/02/16 at 14:00 Hydromorphone HCl (Dilaudid) 1 mg Q3H PRN IV PAIN LEVEL 8-10; Start 12/02/16 at 14:00 Ondansetron HCl (Zofran Inj) 4 mg Q6H PRN IV NAUSEA AND/OR VOMITING; Start 12/02 at 14:00 Bisacodyl (Dulcolax Supp) 10 mg Q12H PRN [place] CONSTIPATION; Start 12/02/16 at 14: 00 Magnesium Hydroxide (Milk Of Mag) 30 ml BID PRN PO CONSTIPATION Last administered on 12/04/16 20:36; Admin Dose 30 ML; Start 12/02/16 at 14:00 Sodium Biphosphate/ Sodium Phosphate (Fleet Enema) 133 ml DAILY PRN [place] CONSTIPATION; Start 12/02/16 at 14:00 Docusate Sodium (Colace) 100 mg BID PO Last administered on 12/04/16 20:30; Admin Dose 100 MG; Start 12/02/16 at 21:00 Diphenhydramine HCl (Benadryl) 25 mg Q6H PRN PO PRURITUS; Start 12/02/16 at 14: 00 Aspirin (Ecotrin) 325 mg BID PO Last administered on 12/04/16 20:30; Admin Dose 325 MG; Start 12/03/16 at 09:00 Pantoprazole (Protonix Tab) 40 mg BID@18 PO Last administered on 12/05/16 06 :00; Admin Dose 40 MG; Start 12/02/16 at 18:00 Pregabalin (Lyrica) 50 mg BID PO Last administered on 12/04/16 20:30; Admin Dose 50 MG; Start 12/02/16 at 21:00 DYLAN OLIVAREZ MD December 05, 2016 08:30
[2016-12-05] MEDS: NEBIVOLOL 5 MG TAB PO SCH (09:00)
--- NOTE | 2016-12-05 09:36 | RADRPT ---
PROCEDURE: Ultrasound of the left lower extremity venous system. CLINICAL INDICATION: Left leg pain and swelling, deep venous thrombosis TECHNIQUE: Bryant scale with and without compression, color doppler, spectral doppler of the venous system of the left lower extremity was performed. Venous augmentation maneuvers were utilized. COMPARISON: No prior studies are available for comparison. FINDINGS: Common femoral vein: Patent. Femoral vein: Patent. Popliteal vein: Patent. Calf veins: Patent. No soft tissue abnormalities are identified. IMPRESSION: No evidence of a deep vein thrombosis within the left lower extremity. RPTAT: AADD .Abdi Martinez MD, MD Date Time Electronically viewed and signed by .Abdi Martinez MD, on 12/05/2016 09:36 .B/
[2016-12-05] MEDS: DOCUSATE SODIUM 100 MG CAP PO SCH ×2 (10:12→21:03)
[2016-12-05] MEDS: ASPIRIN (EC) 325 MG TAB PO SCH ×2 (10:12→21:03)
[2016-12-05] MEDS: PREGABALIN 50 MG CAP PO SCH ×2 (10:12→21:04)
[2016-12-05] MEDS: VANCOMYCIN 1 GM in NS 250 ML IVPB SCH (10:15)
[2016-12-05] MEDS: CELECOXIB 200 MG CAP PO SCH (10:18)
[2016-12-05] MEDS: MAGNESIUM HYDROXIDE 30ML CUP PO PRN (18:20)
[2016-12-05 19:40] VITALS: BP 118/56; RESP 18
[2016-12-06] MEDS: HYDROCODONE/APAP (5/325) TAB PO PRN ×3 (00:06→14:51)
[2016-12-06 05:14] LABS: HEMATOCRIT 30.3 % (37.0-47.0); HEMOGLOBIN 9.6 g/dl (12.0-16.0)
[2016-12-06 05:35] LABS: POTASSIUM 4.7 mmol/L (3.5-5.1)
[2016-12-06] MEDS: PANTOPRAZOLE (EC) 40 MG TAB PO SCH ×2 (05:35→17:54)
[2016-12-06 05:38] LABS: CREATININE 0.88 mg/dl (0.44-1.00)
[2016-12-06 05:39] LABS: CALCIUM 8.2 mg/dl (8.4-10.2)
[2016-12-06 07:00] VITALS: BP 112/59; RESP 18
[2016-12-06 08:35] VITALS: BP 117/59; PULSE 83; RESP 17
[2016-12-06] MEDS: DOCUSATE SODIUM 100 MG CAP PO SCH ×2 (08:37→21:15)
[2016-12-06] MEDS: ASPIRIN (EC) 325 MG TAB PO SCH ×2 (08:37→21:15)
[2016-12-06] MEDS: PREGABALIN 50 MG CAP PO SCH ×2 (08:37→21:15)
[2016-12-06] MEDS: CELECOXIB 200 MG CAP PO SCH (08:37)
[2016-12-06] MEDS: NEBIVOLOL 5 MG TAB PO SCH (09:00)
--- NOTE | 2016-12-06 09:05 | PN ---
Date/Time of Note Date/Time of Note DATE: 12/06/16 TIME: 09:01 Assessment/Plan VTE Prophylaxis VTE Prophylaxis Intervention: ambulation, SCD's, other (Aspirin 325 mg twice daily) Lines/Catheters IV Catheter Type (from Nrsg): Peripheral IV Perez in Place (from Nrsg): No Assessment/Plan Assessment/Plan -Pain Meds as needed -Dress change performed today -OOB with PT -ASA/SCDs for DVT Prophylaxis -Continue with vancomycin while in the hospital. Likely patient will be discharged on Thursday when approval for transfer to longterm facility is received as she is currently waiting for available room. -Continue monitoring with Internal Medicine -Patient Stable Subjective 24 Hr Interval Summary 89-year-old female postop day 4 status post left total knee arthroplasty. TASHIA Norman present today providing translation as she is Hebrew-speaking. Patient denies any pain complaints currently. With activity, she states that she has mild pain complaints reaching a maximum of 3/10 on the pain scale. Denies any calf pain. Denies any chest pain/tightness shortness of breath. Patient is currently awaiting approval for transfer to longterm facility upon discharge. She denies any complaints at this time and states that she is doing well. Continues to be on vancomycin. Discussed with nurse, [place], who states that erythema to the calf region has improved since being on antibiotics. Constitutional: no complaints Exam/Review of Systems Vital Signs Vitals Vital Signs Date Time Temp Pulse Resp B/P Pulse Ox O2 Delivery O2 Flow Rate FiO2 12/06/16 08:35 98.1 83 17 117/59 96 Room Air 12/04/16 05:48 2.0 Intake and Output 12/05/16 12/05/16 12/06/16 15:00 23:00 07:00 Intake Total 250 ml 1200 ml 400 ml Output Total 800 ml Balance 250 ml 400 ml 400 ml Exam Free Text/Dictation -Hemovac: Removed -Incision: Clean, Dry and Intact without any redness or drainage. Improved erythema to the calf region while on Vanco. -12/05 Tibialis Anterior, EHL Gastrocnemius/Soleus and Peroneals -Normal Sensation -Palpable DP/PT, Capillary Refill <2 secs -No Distal Edema -Negative Sophia Sign/No calf pain -Toes Freely Movable Constitutional: alert, oriented, well developed Results Result Diagram: 12/06/16 0446 12/06/16 0446 PEACE INMAN PA-C December 06, 2016 09:05
[2016-12-06] MEDS: VANCOMYCIN 1 GM in NS 250 ML IVPB SCH (10:43)
--- NOTE | 2016-12-06 11:00 | CONS ---
Date/Time of Note Date/Time of Note DATE: 12/06/16 TIME: 10:59 Assessment/Plan Assessment/Plan Additional Assessment/Plan 1. Stable post op left knee replacement 2. Labs rev Consultation Date/Type/Reason Admit Date/Time December 02, 2016 at 07:34 Type of Consultation: im Detailed Summary Respiratory: No shortness of breath Cardiovascular: No chest pain Gastrointestinal: no complaints Genitourinary: no complaints Musculoskeletal: bone/joint pain (mild left knee pain) Exam/Review of Systems Vital Signs Vitals Vital Signs Date Time Temp Pulse Resp B/P Pulse Ox O2 Delivery O2 Flow Rate FiO2 12/06/16 08:35 98.1 83 17 117/59 96 Room Air 12/04/16 05:48 2.0 Intake and Output 12/05/16 12/05/16 12/06/16 15:00 23:00 07:00 Intake Total 250 ml 1200 ml 400 ml Output Total 800 ml Balance 250 ml 400 ml 400 ml Exam Neck: No jvd Respiratory: clear to auscultation Cardiovascular: regular rate and rhythm Gastrointestinal: soft Extremities: No tenderness (calves bilat) Results Result Diagram: 12/06/16 0446 12/06/16 0446 Results 24 hrs Laboratory Tests Test 12/06/16 04:46 Hemoglobin 9.6 L Hematocrit 30.3 L Sodium Level 134 L Potassium Level 4.7 Chloride Level 99 Carbon Dioxide Level 28 Anion Gap 12 Blood Urea Nitrogen 30 H Creatinine 0.88 Glucose Level 128 Calcium Level 8.2 L Medications Medications Current Medications Miscellaneous Medication (Bystolic) 2.5 mg DAILY PO Last administered on 09:46; Admin Dose 2.5 MG; Start 12/03/16 at 09:00 Celecoxib (Celebrex) 200 mg DAILY PO Last administered on 12/06/16 08:37; Admin Dose 200 MG; Start 12/03/16 at 09:00 Acetaminophen/ Hydrocodone Bitart ([place] (5/325)) 1 tab Q4H PRN PO PAIN LEVEL 1 -3 Last administered on 12/06/16 05:37; Admin Dose 1 TAB; Start 12/02/16 at 14:00 Acetaminophen/ Hydrocodone Bitart ([place] (5/325)) 2 tab Q4H PRN PO PAIN LEVEL 4 -7; Start 12/02/16 at 14:00 Hydromorphone HCl (Dilaudid) 1 mg Q3H PRN IV PAIN LEVEL 8-10; Start 12/02/16 at 14:00 Ondansetron HCl (Zofran Inj) 4 mg Q6H PRN IV NAUSEA AND/OR VOMITING; Start 12/02 at 14:00 Bisacodyl (Dulcolax Supp) 10 mg Q12H PRN [place] CONSTIPATION; Start 12/02/16 at 14: 00 Magnesium Hydroxide (Milk Of Mag) 30 ml BID PRN PO CONSTIPATION Last administered on 12/05/16 18:20; Admin Dose 30 ML; Start 12/02/16 at 14:00 Sodium Biphosphate/ Sodium Phosphate (Fleet Enema) 133 ml DAILY PRN [place] CONSTIPATION Last administered on 12/05/16 21:52; Admin Dose 133 ML; Start at 14:00 Docusate Sodium (Colace) 100 mg BID PO Last administered on 12/06/16 08:37; Admin Dose 100 MG; Start 12/02/16 at 21:00 Diphenhydramine HCl (Benadryl) 25 mg Q6H PRN PO PRURITUS; Start 12/02/16 at 14: 00 Aspirin (Ecotrin) 325 mg BID PO Last administered on 12/06/16 08:37; Admin Dose 325 MG; Start 12/03/16 at 09:00 Pantoprazole (Protonix Tab) 40 mg BID@06,18 PO Last administered on 12/06/16 05 :35; Admin Dose 40 MG; Start 12/02/16 at 18:00 Pregabalin 50 mg 50 mg BID PO Last administered on 12/06/16 08:37; Admin Dose 50 MG; Start 12/02/16 at 21:00 Vancomycin HCl (Vancocin) 250 ml @ 125 mls/hr Q24H IVPB Last administered on 10:43; Admin Dose 125 MLS/HR; Start 12/05/16 at 10:00 DYLAN OLIVAREZ MD December 06, 2016 10:59
[2016-12-06 20:10] VITALS: BP 123/68; PULSE 95; RESP 18
[2016-12-07] MEDS: HYDROCODONE/APAP (5/325) TAB PO PRN (00:33)
[2016-12-07 05:08] LABS: HEMATOCRIT 28.3 % (37.0-47.0); HEMOGLOBIN 9.2 g/dl (12.0-16.0)
[2016-12-07 05:30] LABS: CALCIUM 8.4 mg/dl (8.4-10.2); CREATININE 0.82 mg/dl (0.44-1.00); POTASSIUM 4.7 mmol/L (3.5-5.1)
[2016-12-07] MEDS: PANTOPRAZOLE (EC) 40 MG TAB PO SCH ×2 (05:45→17:43)
[2016-12-07 07:42] VITALS: BP 108/53; RESP 19
[2016-12-07] MEDS ORDERED: VANCOMYCIN IV PER PHARMACY XX SCH (08:30)
--- NOTE | 2016-12-07 08:34 | PN ---
Date/Time of Note Date/Time of Note DATE: 12/07/16 TIME: 08:31 Assessment/Plan VTE Prophylaxis VTE Prophylaxis Intervention: ambulation, SCD's, other (Aspirin 325 mg twice daily) Lines/Catheters IV Catheter Type (from Nrsg): Peripheral IV Perez in Place (from Nrsg): No Assessment/Plan Assessment/Plan -Pain Meds as needed -Dress change performed today -OOB with PT -ASA/SCDs for DVT Prophylaxis -Continue monitoring with Internal Medicine -Continue Vanco until discharge. -Patient Stable Subjective 24 Hr Interval Summary 89-year-old female postop day 5 status post left total knee arthroplasty. Continues to await approval from halfway facility once room becomes available. Likely will be transferred to halfway facility tomorrow. No overnight events. Patient continues to do well. Has not had physical therapy yesterday as physical therapist was not in due to illness. Patient has been performing range of motion regards to flexion and extension in bed. No acute events overnight. Exam/Review of Systems Vital Signs Vitals Vital Signs Date Time Temp Pulse Resp B/P Pulse Ox O2 Delivery O2 Flow Rate FiO2 12/07/16 07:42 98.0 84 19 108/53 98 12/06/16 20:10 Room Air 12/04/16 05:48 2.0 Intake and Output 12/06/16 12/06/16 12/07/16 15:00 23:00 07:00 Intake Total 250 ml 1100 ml 360 ml Balance 250 ml 1100 ml 360 ml Exam Free Text/Dictation -Hemovac: Removed -Incision: Clean, Dry and Intact without any redness or drainage -5/ Tibialis Anterior, EHL Gastrocnemius/Soleus and Peroneals -Normal Sensation -Palpable DP/PT, Capillary Refill <2 secs -No Distal Edema -Negative Sophia Sign/No calf pain -Toes Freely Movable Constitutional: alert, oriented, well developed Results Result Diagram: 12/07/16 0425 12/07/16 0425 PEACE INMAN PA-C December 07, 2016 08:34
[2016-12-07] MEDS: NEBIVOLOL 5 MG TAB PO SCH (09:00)
[2016-12-07] MEDS: DOCUSATE SODIUM 100 MG CAP PO SCH ×2 (09:38→20:28)
[2016-12-07] MEDS: ASPIRIN (EC) 325 MG TAB PO SCH ×2 (09:38→20:28)
[2016-12-07] MEDS: CELECOXIB 200 MG CAP PO SCH (09:38)
[2016-12-07] MEDS: PREGABALIN 50 MG CAP PO SCH ×2 (09:38→20:28)
[2016-12-07] MEDS: VANCOMYCIN 1 GM in NS 250 ML IVPB SCH (09:39)
--- NOTE | 2016-12-07 11:18 | CONS ---
Date/Time of Note Date/Time of Note DATE: 12/07/16 TIME: 11:15 Assessment/Plan Assessment/Plan Additional Assessment/Plan 1. Doing well post op left knee replacement 2. Tenderness left pretibial area, sl redness, on vanco 3. Hyponatremia, prob sec to pain (siadh), will stop celebrex, random urine for sodium obtained. Consultation Date/Type/Reason Admit Date/Time December 02, 2016 at 07:34 Type of Consultation: im Detailed Summary Respiratory: No cough, No shortness of breath Cardiovascular: No chest pain, No orthopenea Gastrointestinal: no complaints Musculoskeletal: bone/joint pain (left knee and tibial pain) Exam/Review of Systems Vital Signs Vitals Vital Signs Date Time Temp Pulse Resp B/P Pulse Ox O2 Delivery O2 Flow Rate FiO2 12/07/16 07:42 98.0 84 19 108/53 98 12/06/16 20:10 Room Air 12/04/16 05:48 2.0 Intake and Output 12/06/16 12/06/16 12/07/16 15:00 23:00 07:00 Intake Total 250 ml 1100 ml 360 ml Balance 250 ml 1100 ml 360 ml Exam Neck: No jvd Respiratory: clear to auscultation Cardiovascular: regular rate and rhythm Gastrointestinal: soft Musculoskeletal: joint tenderness (no redness or swelling, sl tender left pretibial area, min redness) Results Result Diagram: 12/07/16 0425 12/07/16 0425 Results 24 hrs Laboratory Tests Test 12/07/16 04:25 Hemoglobin 9.2 L Hematocrit 28.3 L Sodium Level 132 L Potassium Level 4.7 Chloride Level 103 Carbon Dioxide Level 27 Anion Gap 7 L Blood Urea Nitrogen 24 H Creatinine 0.82 Glucose Level 138 Calcium Level 8.4 Medications Medications Current Medications Miscellaneous Medication (Bystolic) 2.5 mg DAILY PO Last administered on 09:46; Admin Dose 2.5 MG; Start 12/03/16 at 09:00 Celecoxib (Celebrex) 200 mg DAILY PO Last administered on 12/07/16 09:38; Admin Dose 200 MG; Start 12/03/16 at 09:00 Acetaminophen/ Hydrocodone Bitart ([place] (5/325)) 1 tab Q4H PRN PO PAIN LEVEL 1 -3 Last administered on 12/07/16 00:33; Admin Dose 1 TAB; Start 12/02/16 at 14:00 Acetaminophen/ Hydrocodone Bitart ([place] (5/325)) 2 tab Q4H PRN PO PAIN LEVEL 4 -7; Start 12/02/16 at 14:00 Hydromorphone HCl (Dilaudid) 1 mg Q3H PRN IV PAIN LEVEL 8-10; Start 12/02/16 at 14:00 Ondansetron HCl (Zofran Inj) 4 mg Q6H PRN IV NAUSEA AND/OR VOMITING; Start 12/02 at 14:00 Bisacodyl (Dulcolax Supp) 10 mg Q12H PRN [place] CONSTIPATION; Start 12/02/16 at 14: 00 Magnesium Hydroxide (Milk Of Mag) 30 ml BID PRN PO CONSTIPATION Last administered on 12/05/16 18:20; Admin Dose 30 ML; Start 12/02/16 at 14:00 Sodium Biphosphate/ Sodium Phosphate (Fleet Enema) 133 ml DAILY PRN [place] CONSTIPATION Last administered on 12/05/16 21:52; Admin Dose 133 ML; Start at 14:00 Docusate Sodium (Colace) 100 mg BID PO Last administered on 12/07/16 09:38; Admin Dose 100 MG; Start 12/02/16 at 21:00 Diphenhydramine HCl (Benadryl) 25 mg Q6H PRN PO PRURITUS; Start 12/02/16 at 14: 00 Aspirin (Ecotrin) 325 mg BID PO Last administered on 12/07/16 09:38; Admin Dose 325 MG; Start 12/03/16 at 09:00 Pantoprazole (Protonix Tab) 40 mg BID@06,18 PO Last administered on 12/07/16 05 :45; Admin Dose 40 MG; Start 12/02/16 at 18:00 Pregabalin 50 mg 50 mg BID PO Last administered on 12/07/16 09:38; Admin Dose 50 MG; Start 12/02/16 at 21:00 Vancomycin HCl (Vancocin) 250 ml @ 125 mls/hr Q24H IVPB Last administered on 09:39; Admin Dose 125 MLS/HR; Start 12/05/16 at 10:00 DYLAN OLIVAREZ MD December 07, 2016 11:18
[2016-12-07 20:11] VITALS: BP 134/66; RESP 16
[2016-12-08] MEDS: HYDROCODONE/APAP (5/325) TAB PO PRN ×2 (02:46→11:19)
[2016-12-08 05:39] LABS: HEMATOCRIT 27.9 % (37.0-47.0); HEMOGLOBIN 8.9 g/dl (12.0-16.0)
[2016-12-08 05:43] LABS: CALCIUM 8.3 mg/dl (8.4-10.2); CREATININE 0.88 mg/dl (0.44-1.00); POTASSIUM 4.4 mmol/L (3.5-5.1)
[2016-12-08] MEDS: PANTOPRAZOLE (EC) 40 MG TAB PO SCH (06:42)
[2016-12-08 07:28] VITALS: BP 114/56; RESP 16
--- NOTE | 2016-12-08 08:25 | PN ---
Date/Time of Note Date/Time of Note DATE: 12/08/16 TIME: 08:22 Assessment/Plan Lines/Catheters IV Catheter Type (from Nrsg): Saline Lock Perez in Place (from Nrsg): No Assessment/Plan Assessment/Plan POD #6, s/p left TKA -continue vancomycin. Will continue oral abx upon transfer -pain meds as needed -ASA/SCDs for DVT prophylaxis -OOB with PT -dressing changed -transfer to SNF today -follow up in the office on Thursday Subjective 24 Hr Interval Summary No acute overnight events. Denies pain. Progressing with PT. Currently on Vanco for mild RLE erythema. Denies f/c. Doppler done was negative for DVT. Stable for transfer to SNF today. Exam/Review of Systems Vital Signs Vitals Vital Signs Date Time Temp Pulse Resp B/P Pulse Ox O2 Delivery O2 Flow Rate FiO2 12/08/16 07:28 98.3 91 16 114/56 98 12/06/16 20:10 Room Air Intake and Output 12/07/16 12/07/16 12/08/16 15:00 23:00 07:00 Intake Total 250 ml 680 ml 240 ml Output Total 700 ml Balance 250 ml 680 ml -460 ml Exam Free Text/Dictation Dressing dry Incision clean, dry, and intact without redness or drainage Thigh soft mild erythema along LLE. Mild warmth to touch 5/5 Quadriceps, Tibialis Anterior, EHL, Gastroc, Soleus, Peroneals Normal sensation Palpable DT/PT, CR <2 sec No distal edema Results Result Diagram: 12/08/16 0421 12/08/16 0421 KEM CHACON PA-C December 08, 2016 08:25
--- NOTE | 2016-12-08 08:25 | CONS ---
Date/Time of Note Date/Time of Note DATE: 12/08/16 TIME: 08:23 Assessment/Plan Assessment/Plan Additional Assessment/Plan 1. Doing well post op left knee replacement. 2. Mild cellulitis left pretibial area, agree with keflex and bactrim for 1 week 3. BP controlled and will resume hydrochlorothiazide 4. Hyponatremia has resolved Consultation Date/Type/Reason Admit Date/Time December 02, 2016 at 07:34 Type of Consultation: im Detailed Summary Respiratory: No shortness of breath Cardiovascular: No chest pain Gastrointestinal: no complaints Genitourinary: no complaints Musculoskeletal: other (left pretibial pain) Exam/Review of Systems Vital Signs Vitals Vital Signs Date Time Temp Pulse Resp B/P Pulse Ox O2 Delivery O2 Flow Rate FiO2 12/08/16 07:28 98.3 91 16 114/56 98 12/06/16 20:10 Room Air Intake and Output 12/07/16 12/07/16 12/08/16 15:00 23:00 07:00 Intake Total 250 ml 680 ml 240 ml Output Total 700 ml Balance 250 ml 680 ml -460 ml Exam Neck: No jvd Respiratory: clear to auscultation Cardiovascular: regular rate and rhythm Gastrointestinal: soft Extremities: No edema (and no calf tend, min redness left pretibial area) Results Result Diagram: 12/08/16 0421 12/08/16 0421 Results 24 hrs Laboratory Tests Test 12/08/16 04:21 Hemoglobin 8.9 L Hematocrit 27.9 L Sodium Level 135 Potassium Level 4.4 Chloride Level 105 Carbon Dioxide Level 27 Anion Gap 7 L Blood Urea Nitrogen 21 H Creatinine 0.88 Glucose Level 131 Calcium Level 8.3 L Medications Medications Current Medications Miscellaneous Medication (Bystolic) 2.5 mg DAILY PO Last administered on 09:46; Admin Dose 2.5 MG; Start 12/03/16 at 09:00 Celecoxib (Celebrex) 200 mg DAILY PO Last administered on 12/07/16 09:38; Admin Dose 200 MG; Start 12/03/16 at 09:00 Acetaminophen/ Hydrocodone Bitart ([place] (5/325)) 1 tab Q4H PRN PO PAIN LEVEL 1 -3 Last administered on 12/08/16 02:46; Admin Dose 1 TAB; Start 12/02/16 at 14:00 Acetaminophen/ Hydrocodone Bitart ([place] (5/325)) 2 tab Q4H PRN PO PAIN LEVEL 4 -7; Start 12/02/16 at 14:00 Hydromorphone HCl (Dilaudid) 1 mg Q3H PRN IV PAIN LEVEL 8-10 Last administered on 12/07/16 20:28; Admin Dose 1 MG; Start 12/02/16 at 14:00 Ondansetron HCl (Zofran Inj) 4 mg Q6H PRN IV NAUSEA AND/OR VOMITING; Start 12/02 at 14:00 Bisacodyl (Dulcolax Supp) 10 mg Q12H PRN [place] CONSTIPATION; Start 12/02/16 at 14: 00 Magnesium Hydroxide (Milk Of Mag) 30 ml BID PRN PO CONSTIPATION Last administered on 12/05/16 18:20; Admin Dose 30 ML; Start 12/02/16 at 14:00 Sodium Biphosphate/ Sodium Phosphate (Fleet Enema) 133 ml DAILY PRN [place] CONSTIPATION Last administered on 12/05/16 21:52; Admin Dose 133 ML; Start at 14:00 Docusate Sodium (Colace) 100 mg BID PO Last administered on 12/07/16 20:28; Admin Dose 100 MG; Start 12/02/16 at 21:00 Diphenhydramine HCl (Benadryl) 25 mg Q6H PRN PO PRURITUS; Start 12/02/16 at 14: 00 Aspirin (Ecotrin) 325 mg BID PO Last administered on 12/07/16 20:28; Admin Dose 325 MG; Start 12/03/16 at 09:00 Pantoprazole (Protonix Tab) 40 mg BID@06,18 PO Last administered on 12/08/16 06 :42; Admin Dose 40 MG; Start 12/02/16 at 18:00 Pregabalin 50 mg 50 mg BID PO Last administered on 12/07/16 20:28; Admin Dose 50 MG; Start 12/02/16 at 21:00 Vancomycin HCl (Vancocin) 250 ml @ 125 mls/hr Q24H IVPB Last administered on 09:39; Admin Dose 125 MLS/HR; Start 12/05/16 at 10:00 Miscellaneous Information (*Rx Drug Level Order Reminder*) VANCOMYCIN TROUGH 12/08 AT 0900 ONCE ONCE XX ; Start 12/08/16 at 09:00; Stop 12/08/16 at 09:01 DYLAN OLIVAREZ MD December 08, 2016 08:25
[2016-12-08] MEDS: NEBIVOLOL 5 MG TAB PO SCH (08:31)
[2016-12-08] MEDS: CELECOXIB 200 MG CAP PO SCH (08:31)
[2016-12-08] MEDS: DOCUSATE SODIUM 100 MG CAP PO SCH (08:32)
[2016-12-08] MEDS: ASPIRIN (EC) 325 MG TAB PO SCH (08:32)
[2016-12-08] MEDS: PREGABALIN 50 MG CAP PO SCH (08:32)
[2016-12-08] MEDS ORDERED: HYDROCHLOROTHIAZIDE 12.5 MG CAP PO SCH (09:00)
[2016-12-08] MEDS: VANCOMYCIN 1 GM in NS 250 ML IVPB SCH (10:26)
[2016-12-09] MEDS ORDERED: VANCOMYCIN 1.5 GM in SOD CHLORIDE 0.9% 250 ML IVPB SCH (06:00)
== END 2016-12-08 15:40 | DRG 470 ==
LOC: REC 07:34 → MS1 22:00
PROVIDERS: ADMIT Orthopaedic Surgery; ATTEND Orthopaedic Surgery
PROC: 0SRD0J9 Replacement of Left Knee Joint with Synthetic Substitute, Cemented, Open Approach (ICD-10-PCS; principal; 2016-12-02 10:00)
DX: M17.12 Unilateral primary osteoarthritis, left knee (principal); E87.1 Hypo-osmolality and hyponatremia; L03.116 Cellulitis of left lower limb; I10 Essential (primary) hypertension; Z96.651 Presence of right artificial knee joint
CPT/HCPCS: 73560; 80048; 80202; 81001; 81003; 83735; 84100; 85014; 85018; 86850; 86900; 86901; 86920; 87081; 87086; 93971; 97110; 97116; 97162; 97530; C1776; C9290; J0131; J0171; J0690; J0697; J0735; J1100; J1170; J1885; J2274; J2405; J2765; J3010; J3370; J7050; J7120

== ENCOUNTER → 2016-12-12 | Outpatient (CLI) | payer OTHER ==
[~2016-12-12] MED LIST changes: +ASPI325T32 PO; -ATEN-51 PO; -EPHEDrine SULFATE 50 MG/5 ML SYG ONE; +HYDR-905 PO; +HYDR12.58 PO; +NEBI2.5T2 PO; +PANT40TA4 PO; +PREG50CA PO; +TRAM50TA2 PO
--- NOTE | 2016-12-12 15:30 | HKNOTE ---
DATE OF SERVICE: 12/12/2016 INTERVAL HISTORY: The patient presents today for her first postoperative evaluation. She is 10 days status post left total knee arthroplasty. She is doing well overall. She is at [facility] nursing [facility]. She denies any significant pain to her left knee but is complaining of swelling. She presents today for her first postoperative evaluation. PHYSICAL EXAMINATION: Today, she is alert and oriented x4 and in no acute distress. She is in a wheelchair but is able to ambulate with a front-wheeled walker. Left knee demonstrates moderate effusion. There is no erythema or warmth noted. [place] are in place. There is no pus or drainage from the incision. Range of motion is 0 to 110 degrees. Varus and valgus forces are stable. Compartments are soft. Homans sign is negative. She is neurovascularly intact distally. IMAGING: X-rays of the left knee were obtained today and reviewed by me. They demonstrate good anatomic alignment with no fractures or dislocations identified. ASSESSMENT: 10 days status post left total knee arthroplasty, doing well. PLAN: The patient's steven were removed today, and Steri-Strips were applied. She is to continue Keflex and Bactrim which she began taking in the hospital until the course of antibiotics finishes on Thursday. She is to continue with DVT prophylaxis. Additionally, she is to continue with pain medicine as needed. I encouraged her to ice and elevate the extremity above the level of the heart as much as possible. She is to continue physical therapy at her senior living facility. Upon discharge, she will transition to an outpatient physical therapy program or home health program. The patient will follow up in 4 weeks for repeat evaluation. She is to call the office in the meantime if she has any concerns. Dictated By: KEM HERNANDEZ for SATURNINO DUDLEY/ZURDO Conf#: [id number] DID#: [id number] ANTONIA
== END | disposition home or self-care (01) ==
LOC: HKI 11:05
PROVIDERS: ATTEND Orthopaedic Surgery
DX: Z47.1 Aftercare following joint replacement surgery (principal); Z96.652 Presence of left artificial knee joint

== ENCOUNTER → 2017-01-16 | Outpatient (CLI) | payer OTHER | END | disposition home or self-care (01) | LOC: HKI 10:49 | PROVIDERS: ATTEND Orthopaedic Surgery | DX: Z47.1 Aftercare following joint replacement surgery (principal); M17.12 Unilateral primary osteoarthritis, left knee; Z96.652 Presence of left artificial knee joint ==

== ENCOUNTER → 2017-02-27 | Outpatient (CLI) | payer OTHER ==
[~2017-02-27] MED LIST changes: +ATEN-51 PO; +CELE200C PO; +FURO40TA4 PO
--- NOTE | 2017-02-27 14:06 | RADRPT ---
PROCEDURE: Left knee radiographs. CLINICAL INDICATION: Left knee pain. Postop. TECHNIQUE: Three views. Weight bearing. Frontal, lateral, and patellar view. COMPARISON: 08/25/2016. 12/02/2016. FINDINGS: There is no fracture or dislocation. The soft tissues are normal. There is a total left knee arthroplasty which appears satisfactory. There is no lytic or blastic lesion. There is no joint effusion. IMPRESSION: 1. Satisfactory postoperative appearance of the left knee. RPTAT: QQ .Frantz Pete MD, MD Date Time Electronically viewed and signed by .Frantz Pete MD, MD on 02/27/2017 14:06 .R/
== END | disposition home or self-care (01) ==
LOC: HKI 09:00
PROVIDERS: ATTEND Orthopaedic Surgery
DX: M17.12 Unilateral primary osteoarthritis, left knee (principal); Z47.1 Aftercare following joint replacement surgery; Z96.652 Presence of left artificial knee joint
CPT/HCPCS: 73562; G0463